=== PATIENT | female | born 1970 | race Caucasian/White ===

== ENCOUNTER → 2019-08-19 17:06 | Outpatient (CLI) | payer OTHER, SELFPAY ==
--- NOTE | ~2019-08-19 | XR_ITS ---
EXAMINATION: XR shoulder RT min 2V EXAM DATE: 08/19/2019 17:18 INDICATION: No known recent injury provided at this time. Pain of the right shoulder. TECHNIQUE: The following right shoulder projections obtained: frontal projection with internal rotati on, frontal projection with external rotation, Grashey, and scapular Y view (4+ views). There is no prior study for comparison. FINDINGS: No evidence of right shoulder rotator cuff calcific tendinosis. There is mild acromiocla vicular joint primary osteoarthritis. There are no acute fractures or dislocations identified. There is no subcutaneous gas. The soft tissue is unremarkable. There are no radiopaque foreign bodies. IMPRESSION: Mild right acromioclavicular joint osteoarthritis. Reviewed, dictated and finalized at location A. ION MECHANIC HELPER
== END ==
PROVIDERS: PCP Family Medicine; Visit Provider Physician Assistant Medical
DX: M19.011 Primary osteoarthritis, right shoulder (principal)
CPT/HCPCS: 73030

== ENCOUNTER 2020-02-14 15:58 | Outpatient (CLI) | payer OTHER, SELFPAY ==
--- NOTE | ~2020-02-14 | MM_ITS ---
EXAMINATION: MM screening [facility] BI w mary HISTORY: Screening mammogram TECHNIQUE: Craniocaudal and mediolateral oblique 3-D tomosynthesis images were obtained and synthetic 2-D images were generated. CAD analysis was submitted and interpreted. COMPARISON: 06/20/2018, 07/14/2014 BREAST PARENCHYMAL COMPOSITION: There are scattered areas of fibroglandular density. FINDINGS: There is no evidence of suspicious mass, calcification, or architectural distortion to sugg est malignancy in either breast. There has been no suspicious interval change. IMPRESSION: 1. No mammographic evidence of malignancy. 2. Recommend routine screening mammography in one year. BI-RADS Category 1: Negative Reviewed, dictated and finalized at location A.
== END 2020-02-14 15:59 | disposition home or self-care (01) ==
LOC: ANHIMG 15:59
PROVIDERS: PCP Family Medicine; Visit Provider Family Medicine
DX: Z12.31 Encounter for screening mammogram for malignant neoplasm of breast (principal)
CPT/HCPCS: 77063; 77067

== ENCOUNTER 2021-02-16 16:28 | Outpatient (CLI) | payer OTHER, SELFPAY ==
--- NOTE | ~2021-02-16 | MM_ITS ---
EXAMINATION: MM screening [facility] BI w mary HISTORY: Screening TECHNIQUE: Craniocaudal and mediolateral oblique 3-D tomosynthesis images were obtained and synthetic 2-D images were generated. CAD analysis was submitted and interpreted. COMPARISON: Comparison to multiple prior studies sequentially, with oldest reviewed study dated 01/2013. BREAST PARENCHYMAL COMPOSITION: There are scattered areas of fibroglandular density. FINDINGS: There is no evidence of suspicious mass, calcification, or architectural distortion to sugg est malignancy in either breast. There has been no suspicious interval change. IMPRESSION: 1. No mammographic evidence of malignancy. 2. Recommend routine screening mammography in one year. BI-RADS Category 1: Negative Reviewed, dictated and finalized at location A.
== END 2021-02-16 16:29 | disposition home or self-care (01) ==
LOC: ANHIMG 16:29
PROVIDERS: PCP Family Medicine; Visit Provider Family Medicine
DX: Z12.31 Encounter for screening mammogram for malignant neoplasm of breast (principal)
CPT/HCPCS: 77063; 77067

== ENCOUNTER 2022-03-23 16:44 | Outpatient (CLI) | payer OTHER, SELFPAY ==
--- NOTE | ~2022-03-23 | MM_ITS ---
EXAMINATION: MM screening [facility] BI w mary HISTORY: Screening mammogram TECHNIQUE: Craniocaudal and mediolateral oblique 3-D tomosynthesis images were obtained and synthetic 2-D images were generated. CAD analysis was submitted and interpreted. COMPARISON: 02/16/2021, 02/14/2020, 06/20/2018 BREAST PARENCHYMAL COMPOSITION: There are scattered areas of fibroglandular density. FINDINGS: No suspicious mass, calcification, or architectural distortion are identified in either alec ast to suggest malignancy. There has been no suspicious interval change. IMPRESSION: 1. No mammographic evidence of malignancy. 2. Recommend routine screening mammography in one year. BI-RADS Category 1: Negative Reviewed, dictated and finalized at location A.
== END 2022-03-23 16:45 | disposition home or self-care (01) ==
PROVIDERS: PCP Family Medicine; Visit Provider Family Medicine
DX: Z12.31 Encounter for screening mammogram for malignant neoplasm of breast (principal)
CPT/HCPCS: 77063; 77067

== ENCOUNTER 2022-08-07 17:32 | Emergency (ER) | payer OTHER, SELFPAY ==
[2022-08-07 17:42] VITALS: BP 124/60; PULSE 73; RESP 16; TEMP 35.9; O2SAT 100
--- NOTE | 2022-08-07 18:02 | ED.GENADULT ---
HPI - General Adult General Chief complaint: Extremity Problem,Nontraumatic Stated complaint: rt harden sore/pain Time Seen by Provider: 08/07/22 17:48 Source: patient Mode of arrival: ambulatory Limitations: no limitations History of Present Illness HPI narrative: Patient presents today complaining of redness, swelling, and pain to the anterior right lower leg with a scabbed lesion. States this scabbed lesion is due to scratching. Patient has chronic itching of her lower legs due to its some poor circulation. States she has been elevating her leg, which has helped with the pain and swelling, but states the redness has been spreading. She has not tried any lryf-qvo-homksqy interventions prior to arrival. She does have betamethasone ointment for her leg itching, but has not been using it. She also has mupirocin ointment for any open wounds, but has not applied this either. Related Data Allergies Allergy/AdvReac Type Severity Reaction Status Date / Time amoxicillin Allergy hives Verified 08/07/22 17:38 Review of Systems Review of Systems: CONSTITUTIONAL: Denies body aches, fever, chills, or sweats. EYES: Denies visual changes, redness, or discharge. ENT: Denies rhinorrhea, congestion, sore throat, or otalgia. CARDIOVASCULAR: Denies chest pain, palpitations, or edema. RESPIRATORY: Denies cough or dyspnea. GASTROINTESTINAL: Denies abdominal pain, nausea, vomiting, or diarrhea. GENITOURINARY: Denies dysuria or hematuria. SKIN:+ redness, swelling, and pain to the right lower leg MUSCULOSKELETAL: Denies back pain, joint pain, or myalgia. NEUROLOGIC: Denies headache, numbness, tingling, or weakness. PSYCH: Denies depression or anxiety. [facility] Past Medical History Medical History (Updated 08/07/22 @ 18:08 by Simin Carrillo, AMA, BC) Venous insufficiency (chronic) (peripheral) Family History Family History Father Hypertension Mother Hypertension Grandparent Hypertension Family history of cardiovascular disease, Onset Age: 80 Acute myocardial infarction, Onset Age: 80 Family history of lung cancer Family history of malignant neoplasm of breast Family history of coronary artery disease, Onset Age: 80 Family history of congestive heart failure Social History Social History Social History: Caffeine-none Smoking status: Never smoker Alcohol intake: never Comments At time of signature, I have reviewed and agree with nursing past medical, surgical, social and family history unless otherwise noted. Please see nursing chart for further information. There is no relevant family history pertinent to the presenting complaint Exam Narrative: GENERAL: Well-appearing, well-nourished, and in no acute distress. HEAD: Normocephalic, atraumatic. EYES: EOMI. No redness or drainage. Conjunctivae normal. ENT: Mucous membranes pink and moist. NECK: Normal AROM. CHEST: No respiratory distress. EXTREMITIES: Right lower leg: Patient has an area measuring 11 x 14 cm to the anterior lower leg that is tender to palpation with localized swelling. There is an approximately 2 x 2 cm scabbed area in lower portion. No fluctuance noted. No drainage noted. Distal sensation intact. Capillary refill normal. Full range of motion of the ankle and knee. SKIN: Warm, dry, no rash. Capillary refill normal. Normal skin turgor. NEURO: No focal deficits. Alert and oriented x3. Gait steady. PSYCH: Normal affect. No signs of depression or anxiety. Course Course Level of Care: Express Care Visit Vital Signs Vital signs: Vital Signs Temperature 96.7 F L 08/07/22 17:42 Pulse Rate 73 08/07/22 17:42 Respiratory Rate 16 08/07/22 17:42 Blood Pressure 124/60 08/07/22 17:42 Pulse Oximetry 100 08/07/22 17:42 Temperature 96.7 F L 08/07/22 17:42 Pulse Rate 73 08/07/22 17:42 Respiratory Ra
== END 2022-08-07 18:11 | disposition home or self-care (01) ==
PROVIDERS: Emergency Provider Nurse Practitioner; PCP Family Medicine
DX: L03.115 Cellulitis of right lower limb (principal); I87.2 Venous insufficiency (chronic) (peripheral)
CPT/HCPCS: 99213; G0463

== ENCOUNTER → 2022-11-01 16:30 | Outpatient (CLI) | payer OTHER, SELFPAY ==
--- NOTE | ~2022-11-01 | XR_ITS ---
XR knee RT 3V 11/01/2022 16:39 Indication: Right knee pain Procedure: 3 views right knee Comparison: No prior studies for comparison. Findings: There is tricompartment osteoarthritis, severe in the patellofemoral compartment. No fractu re, subluxation or dislocation. No joint effusion. No foreign bodies. Impression: 1: Tricompartment osteoarthritis, severe in the patellofemoral compartment. Reviewed, dictated and finalized at location L. Impression: 1: Tricompartment osteoarthritis, severe in the patellofemoral compartment.
== END ==
PROVIDERS: PCP Family Medicine; Visit Provider Nurse Practitioner Family
DX: M17.11 Unilateral primary osteoarthritis, right knee (principal)
CPT/HCPCS: 73562

== ENCOUNTER 2023-05-19 07:16 | Outpatient (CLI) | payer OTHER, SELFPAY ==
--- NOTE | ~2023-05-19 | MM_ITS ---
EXAMINATION: MM screening [facility] BI w mary HISTORY: Screening mammogram TECHNIQUE: Craniocaudal and mediolateral oblique 3-D tomosynthesis images were obtained and synthetic 2-D images were generated. CAD analysis was submitted and interpreted. COMPARISON: 03/23/2022, 02/16/2021, 02/06/2020 bilateral screening mammogram examinations BREAST PARENCHYMAL COMPOSITION: There are scattered areas of fibroglandular density. FINDINGS: There is no evidence of suspicious mass, calcification, or architectural distortion to sugg est malignancy in either breast. There has been no suspicious interval change. IMPRESSION: 1. No mammographic evidence of malignancy. 2. Recommend routine screening mammography in one year. BI-RADS Category 1: Negative Reviewed, dictated and finalized at location A. CUTTER
== END 2023-05-19 07:17 | disposition home or self-care (01) ==
PROVIDERS: PCP Family Medicine; Visit Provider Family Medicine
DX: Z12.31 Encounter for screening mammogram for malignant neoplasm of breast (principal)
CPT/HCPCS: 77063; 77067

== ENCOUNTER 2023-10-20 11:45 | Outpatient (CLI) | payer OTHER, SELFPAY ==
[2023-10-20 20:14] LABS: Hematocrit 39.4 % (37.0-47.0); Hemoglobin 12.2 g/dL (12.0-15.0); Mean Corpuscular Volume 93.6 fl (80-100); Mean Platelet Volume 10.9 fl (7.4-10.4); Platelet Count Result 217 k/mm3 (150-375); Red Blood Count 4.21 M/mm3 (4.2-5.4); Red Cell Distribution Width 13.4 % (11.5-14.5)
[2023-10-20 20:30] LABS: Alanine Aminotransferase 15 U/L (6-35); Albumin Level 4.4 g/dL (3.5-5.1); Alkaline Phosphatase 76 U/L (38-126); Anion Gap 5 mmol/L (4-12); Aspartate Amino Transferase 31 U/L (14-36); Bilirubin,Total 0.7 mg/dL (0.2-1.3); Blood Urea Nitrogen 19 mg/dL (7-17); Calcium 9.6 mg/dL (8.4-10.2); Carbon Dioxide 28 mmol/L (22-30); Chloride 106 mmol/L (98-107); Cholesterol 180 mg/dL (0-200); Estimated Glomerular Filt Rate > 60; Glucose 83 mg/dL (65-110); HDL Direct 57 mg/dL; Potassium 4.8 mmol/L (3.4-5.0); Sodium 139 mmol/L (137-145); Triglycerides 71 mg/dL (<150)
[2023-10-20 20:41] LABS: LDL Cholesterol Direct 99 mg/dL
[2023-10-22 08:39] LABS: FSH 5.3 mIU/mL; Prolactin 20.4 ng/mL
[2023-10-25 10:53] LABS: Testosterone Free 1.8 pg/mL (0.1-6.4); Testosterone Total 35 ng/dL (2-45)
[2023-10-25 12:04] LABS: Vitamin D 1,25 (OH)2 Total 37 pg/mL (18-72); Vitamin D2 1,25 (OH)2 <8 pg/mL; Vitamin D3 1,25 (OH)2 37 pg/mL
== END 2023-10-20 11:46 | disposition home or self-care (01) ==
LOC: ANHGOSHLAB 11:47
PROVIDERS: PCP Family Medicine; Visit Provider Family Medicine
DX: E55.9 Vitamin D deficiency, unspecified (principal); E66.9 Obesity, unspecified; N92.6 Irregular menstruation, unspecified; N95.1 Menopausal and female climacteric states; R79.89 Other specified abnormal findings of blood chemistry; Z79.899 Other long term (current) drug therapy
CPT/HCPCS: 36415; 80053; 80061; 82652; 82672; 82677; 83001; 83002; 84146; 84402; 84403; 84439; 84443; 85027

== ENCOUNTER 2024-05-03 16:17 | Outpatient (CLI) | payer OTHER, SELFPAY ==
--- NOTE | ~2024-05-03 | US_ITS ---
EXAM: PELVIC ULTRASOUND HISTORY: Other intra abd and pelvic swelling COMPARISON: None. FINDINGS: UTERUS: 10.1 x 4.6 x 5.3 cm. The uterus is anteverted and anteflexed. The endometrial complex measures 8.8 mm. Multiple nabothian cysts are incidentally noted. RIGHT OVARY: The right ovary is unremarkable in echogenicity and size measuring 2.5 x 1.4 x 1.7 cm. Arterial and venous flow are identified. LEFT OVARY: Despite prolonged interrogation, the left ovary was not visualized. Trace free fluid identified within the left adnexa. IMPRESSION: Despite prolonged interrogation, the left ovary was not visualized. However, trace free fluid was detected within the left adnexa, possibly physiologic. Remainder of examination is unremarkable. Reviewed, dictated and finalized at location A. OR COMPENSATION CONSULTANT IMPRESSION: Despite prolonged interrogation, the left ovary was not visualized. However, trace free fluid was detected within the left adnexa, possibly physiol ogic. Remainder of examination is unremarkable.
== END 2024-05-03 16:18 | disposition home or self-care (01) ==
LOC: ANHIMG 16:18
PROVIDERS: PCP Family Medicine; Visit Provider Nurse Practitioner
DX: R19.09 Other intra-abdominal and pelvic swelling, mass and lump (principal)
CPT/HCPCS: 76830; 76856

== ENCOUNTER 2024-05-21 07:08 | Outpatient (CLI) | payer OTHER, SELFPAY ==
--- NOTE | ~2024-05-21 | MM_ITS ---
EXAMINATION: MM screening [facility] BI w mary HISTORY: Screening TECHNIQUE: Craniocaudal and mediolateral oblique 3-D tomosynthesis images were obtained and synthetic 2-D images were generated. CAD analysis was submitted and interpreted. COMPARISON: Comparison to multiple prior studies sequentially, with oldest reviewed study dated 07/14. BREAST PARENCHYMAL COMPOSITION: Not dense: There are scattered areas of fibroglandular density. FINDINGS: There is no evidence of suspicious mass, calcification, or architectural distortion to sugg est malignancy in either breast. There has been no suspicious interval change. IMPRESSION: 1. No mammographic evidence of malignancy. 2. Recommend routine screening mammography in one year. BI-RADS Category 1: Negative Reviewed, dictated and finalized at location B. BURNER
== END 2024-05-21 07:09 | disposition home or self-care (01) ==
LOC: CHSIMG 07:11
PROVIDERS: PCP Family Medicine; Visit Provider Family Medicine
DX: Z12.31 Encounter for screening mammogram for malignant neoplasm of breast (principal)
CPT/HCPCS: 77063; 77067

== ENCOUNTER 2025-05-23 07:12 | Outpatient (CLI) | payer OTHER, SELFPAY ==
--- NOTE | ~2025-05-23 | MM_ITS ---
EXAMINATION: MM screening [facility] BI w mary HISTORY: Screening. TECHNIQUE: Craniocaudal and mediolateral oblique 3-D tomosynthesis images were obtained and synthetic 2-D images were generated. CAD analysis was submitted and interpreted. COMPARISON: 2023, 2022, and 2021 BREAST PARENCHYMAL COMPOSITION: Dense: The breasts are heterogeneously dense FINDINGS: No suspicious masses are seen. There are no suspicious calcifications. No unexplained architectural distortion is seen. There are no skin or nipple abnormalities identified. There is no adenopathy seen on the images submitted. IMPRESSION: No mammographic or sonographic evidence to suggest malignancy is seen. The patient may return to screening mammography as per ACR guidelines. BI-RADS 1 - Negative. Reviewed, dictated and finalized at location B. M AGENT IMPRESSION: No mammographic or sonographic evidence to suggest malignancy is seen. The fabian ent may return to screening mammography as per ACR guidelines. BI-RADS 1 - Negative.
--- OUTSIDE RECORDS SUMMARY | 2025-05-23 07:15 | XMS_ITS | Clinical Summary ---
Author Organization [facility] Address [address] [place] [address] Care Team Providers Care Access Developer Name Role Phone Lizzette Joe DO Primary Care Provider [phone] Allergies Active Allergy Reactions Criticality Noted Date Comments Amoxicillin Hives Medium 06/26/2024 Medications cholecalciferol (Vitamin D3) 2000 unit tablet Take 1 tablet (2,000 Units total) by mouth daily Active magnesium gluconate 200 mg tabletIndication s:hypomagnesemia Take 1 tablet (200 mg total) by mouth daily Active multivitamin-min erals-lutein (Multivitamin 50 Plus) tablet Take 1 tablet by mouth daily Active Active Problems No known active problems Surgical History Surgery Date Site/Laterality Comments TUBAL LIGATION Family History Medical History Relation Name Comments Hypertension Father Hypertension Mother Kidney disease Mother Relation Name Status Comments Father Alive Mother Alive Social History Tobacco Use Types Packs/Day Years Used Date Smoking Tobacco: Never Tobacco Cessation:Counseling Given: Not Answered Comments Unknown Sex and Gender Information Value Date Recorded Sex Assigned at Not on file Legal Sex Female 1:05 PM ESTIMATING MANAGER Gender Identity Not on file Sexual Orientation Not on file Last Filed Vital Signs Vital Sign Reading Time Taken Comments Blood Pressure 106/70 10/07/2024 9:58 AM CDT Pulse 56 10/07/2024 9:58 AM CDT Temperature 36.4 C (97.5 F) 10/07/2024 9:58 AM CDT Respiratory Rate - - Oxygen Saturation - - Inhaled Oxygen Concentration - - Weight 86.2 kg (190 lb) 10/07/2024 9:58 AM CDT Height 165.1 cm (5' 5) 06/26/2024 8:19 AM ESTIMATING MANAGER Body Mass Index 31.62 06/26/2024 8:19 AM ESTIMATING MANAGER Plan of Treatment Health Maintenance Due Date Last Done Comments Breast Cancer Screening-Mammogram 1972 Cervical Cancer Screening 1972 Colon Cancer Screening-Colonoscopy 1972 Depression Screening 1972 Hepatitis C Screening 1972 Regular Well Visit/Exam 18-64 1990 Zoster Vaccine (1 of 2) 2022 Covid-19 Vaccine (2024- season) 2025 03/08/2024, 03/25/2023, 04/06/2022, Additional history exists Influenza Vaccine (#1) 2025 , 03/25/2023, 04/01/2022, Additional history exists DTaP/Tdap/Td Vaccine (2 - Td or Tdap) 01/21/2031 01/21/2021 Hepatitis B Screening Completed 11/12/1996 , 06/20/1996, 05/20/1996 Pneumococcal vaccine <65 Aged Out No longer eligible based on patient's age to complete [place] [address] [facility] CHOICE [employer]US [facility] H[facility]/PPO Address: [facility] [address] [facility] [employer] [facility] [employer]O Address: [address] [address] [place] [address] [facility] Care Teams Access Developer Relationship Specialty Start Date End Date Vernace, Lizzette Sulema, DO PCP - General Family Medicine 05/08/24
== END 2025-05-23 07:13 | disposition home or self-care (01) ==
LOC: CHSIMG 07:12
PROVIDERS: PCP Family Medicine; Visit Provider Nurse Practitioner
DX: Z12.31 Encounter for screening mammogram for malignant neoplasm of breast (principal)
CPT/HCPCS: 77063; 77067

== ENCOUNTER 2025-05-24 14:04 | Emergency (ER) | payer OTHER, SELFPAY ==
--- NOTE | ~2025-05-24 | US_ITS ---
EXAMINATION: US venous doppler LE RT, 05/24/2025 15:46 INFORMATION SYSTEMS COORDINATOR HISTORY: Tenderness Right Calf Comparison: None Technique: Huston-scale and color Doppler images were attempted of the lower saphenofemoral junction, common femoral vein,superficial femoral vein, proximal deep femoral vein, proximal deep femoral vein, popliteal vein and posterior tibial veins. Findings: Deep Venous System:Normal flow, augmentation and compressibility. No echogenic thrombus identified. The contralateral saphenofemoral junction appears unremarkable. Superficial Venous SystemNo superficial thrombophlebitis. Soft tissues: Soft tissues are unremarkable. Impression: Negative for DVT. Reviewed, dictated and finalized at location P. RMATION SYSTEMS COORDINATOR Impression: Negative for DVT.
[2025-05-24 14:09] VITALS: BP 133/60; PULSE 71; RESP 16; TEMP 37.1; O2SAT 100
--- NOTE | 2025-05-24 16:35 | ED.GENADULT ---
HPI - General Adult General Chief complaint: Extremity Problem,Nontraumatic Stated complaint: I need an ultrasound R leg DVT rule out Time Seen by Provider: 05/24/25 16:13 History of Present Illness HPI narrative: 54-year-old female presented to the emergency department for evaluation for possible DVT in her right lower extremity. Patient does have prior history of superficial venous thrombosis and patient was getting a lymphatic massage today when the masseuse felt a area of firmness on the anterior right harden that she was concern for DVT. Patient states there was no localized erythema, no tenderness to palpation. Patient did become concerned that maybe there was a DVT so she presented emergency department for evaluation. Time of evaluation patient states that the firmness has since resolved patient denies any pain or complaint. Related Data Home Medications ?Medication ?Instructions ?Recorded ?Confirmed ?Last Taken ?Type cholecalciferol (vitamin D3) 50 50 mcg PO DAILY 01/22/24 01/14/25 Unknown History mcg (2,000 unit) tablet multivitamin 1 tablet PO DAILY 01/22/24 01/14/25 Unknown History Collagen 2,500 mg PO 01/14/25 01/14/25 Unknown History magnesium 250 mg tablet 250 mg PO DAILY 01/14/25 01/14/25 Unknown History Allergies Allergy/AdvReac Type Severity Reaction Status Date / Time amoxicillin Allergy hives Verified 05/24/25 14:07 Review of Systems Review of Systems: All systems reviewed & are unremarkable except as noted in HPI and below PMFSH Past Medical History Medical History Venous insufficiency (chronic) (peripheral) Family History Family History Father Hypertension Mother Hypertension Kidney disease Grandparent Hypertension Family history of cardiovascular disease, Onset Age: 80 Acute myocardial infarction, Onset Age: 80 Family history of lung cancer Family history of malignant neoplasm of breast Family history of coronary artery disease, Onset Age: 80 Family history of congestive heart failure Social History Social History Social History: Caffeine-none Smoking status: Never smoker Alcohol intake: never Substance use: never Substance use type: does not use Lack of Transportation: No Lack of Food: Never True Current Housing: I Have Housing Concerned About Future Housing: No Difficulty Paying Gas/Electric Bills: No Difficulty Paying for Meds: No Currently Unemployed: No Education: Master's Degree or Higher Difficulty w/ Childcare or Family Care: No Agree to blood products: Yes Exam Narrative: APPEARANCE: Well appearing, no pain, no distress, well-nourished. HEAD: normocephalic, atraumatic. EYES: PERRLA/EOMI, conjunctivae clear. NOSE: Normal no drainage EARS:TMS clear with good light reflex. THROAT: Pharynx clear, no exudate. NECK: Supple. No adenopathy, no masses. RESPIRATORY: Airway patent, respirations nonlabored. Clear to auscultation bilaterally, no rales, rhonchi, wheezing. CARDIOVASCULAR: Regular rate and rhythm without murmurs rubs or gallops. ABDOMINAL: Soft, nontender, nondistended, normal bowel sounds MUSCULOSKELETAL: Moves all extremities. Strength/ROM intact, No edema, No calf tenderness. NEURO: Alert. Cranial nerves II through XII intact. Good gait. Good coordination SKIN: Warm, dry. Normal Color PSYCHIATRIC: Normal affect/mood. Course Vital Signs Vital signs: Vital Signs Temperature 98.8 F 05/24/25 14:09 Pulse Rate 71 05/24/25 14:09 Respiratory Rate 16 05/24/25 14:09 Blood Pressure 133/60 05/24/25 14:09 Pulse Oximetry 100 05/24/25 14:09 Oxygen Delivery Room Air 05/24/25 14:09 Temperature 98.8 F 05/24/25 14:09 Pulse Rate 65 05/24/25 17:03 Respiratory Rate 18 05/24/25 17:03 Blood Pressure 121/71 05/24/25 17:03 Pulse Oximetry 99 05/24/25 17:03 Oxygen Delivery Room Air 05/24/25 14:09 [facility] Narrative Medical decision making narrative: 54-year-old female presents to the emergency department for evaluation for right anterior harden firmness and was concern for possible DVT. Patient states the firmness has since resolved patient has no tenderness to palpation. No overlying erythema concerning for cellulitis. ultrasound was negative for DVT. Patient was updated the results of the workup. Differential Diagnosis Differential Diagnosis: cellulitis, muscle strain, lymphadenopathy, DVT Imaging Data Radiologist's impression: ITS Impressions Venous Doppler Study 12/06/25 16:28 Impression: Negative for DVT. Discharge Plan Discharge Clinical Impression: Encounter for assessment for deep vein thrombosis (DVT) Patient Disposition: Home Condition: Stable Instructions: Antibiotic Form Additional Instructions: Have close follow-up with your primary care physician. If you have any worsening symptoms then please call or return to the emergency department. Patient Language: Kiswahili Prescriptions: No Action cholecalciferol (vitamin D3) 50 mcg (2,000 unit) tablet 50 mcg PO DAILY multivitamin Tablet 1 tablet PO DAILY magnesium 250 mg tablet 250 mg PO DAILY Collagen 2,500 mg PO Follow-up/Referrals: Lizzette Joe DO [Primary Care Provider, [facility]]
[2025-05-24 17:03] VITALS: BP 121/71; PULSE 65; RESP 18; O2SAT 99
== END 2025-05-24 17:04 | disposition home or self-care (01) ==
PROVIDERS: Emergency Provider Emergency Medicine; PCP Family Medicine
DX: R44.8 Other symptoms and signs involving general sensations and perceptions (principal); Z03.89 Encounter for observation for other suspected diseases and conditions ruled out; I87.2 Venous insufficiency (chronic) (peripheral); Z86.718 Personal history of other venous thrombosis and embolism
CPT/HCPCS: 93971; 99284